=== PATIENT | female | born 1935 | race Caucasian/White ===

== ENCOUNTER 2022-05-17 16:39 | Inpatient (IN) ==
[2022-05-17 17:29] LABS: ABS Basophils 0.1 10^3/ul (0-0.2); ABS Lymphocytes 0.6 10^3/ul (1.0-4.8); ABS Monocytes 0.6 10^3/ul (0-0.8); ABS Neutrophils 10.3 10^3/ul (1.5-7.7); Hematocrit 48 % (35-47); Hemoglobin 15.6 g/dL (12.0-16.0); Lymphocyte % 5.4 %; Mean Corpuscular HGB Conc 32 g/dL (31-36); Mean Corpuscular Hemoglobin 31 pg (27-31); Mean Corpuscular Volume 95 fL (80-97); Mean Platelet Volume 9.6 fL (7.4-10.4); Nucleated Red Blood Cells % 0.1; Platelet Count 253 10^3/uL (150-450); Red Blood Count 5.07 10^6 /uL (3.70-4.87); Red Cell Distribution Width 13 % (10-15); White Blood Count 11.6 10^3/uL (3.5-10.8)
[2022-05-17 17:44] LABS: Calcium 11.8 mg/dL (8.6-10.3); Potassium 4.9 mmol/L (3.5-5.0); eGFR CKD-EPI 25.9 (>60)
[2022-05-17] MEDS ORDERED: Acetaminophen IV 1 GM/100ML 100 ML IV ONE (17:45)
[2022-05-17] MEDS ORDERED: Morphine 4 MG/ML VIAL (1 ml) IV ONE (18:32)
[2022-05-17] MEDS ORDERED: Lactated Ringers 1000 ml BAG 1,000 ML IV ONE (18:32)
[2022-05-17 19:00] LABS: High Sensitivity Troponin 1 Hr 182 pg/mL (<15)
[2022-05-17 20:36] LABS: C Reactive Protein 5.27 mg/L (<8.01); Magnesium 2.6 mg/dL (1.9-2.7)
[2022-05-18] MEDS: Enoxaparin 30 MG/0.3 ML SYR SUBCUT SCH ×2 (02:22→22:18)
[2022-05-18 04:58] LABS: Urine Appearance Cloudy; Urine Bilirubin Negative (Negative); Urine Blood Negative (Negative); Urine Color Yellow; Urine Glucose 2+ (500mg/dL) (Negative); Urine Ketones 2+ (40mg/dL) (Negative); Urine Nitrite Negative (Negative); Urine Protein Negative (Negative); Urine Urobilinogen 0.2 (Negative) (Negative); Urine pH 5.5 (5.0-9.0)
[2022-05-18 05:05] LABS: Urine Bacteria 3+ (Absent); Urine Red Blood Cell 1+(3-5/hpf) (Absent); Urine Squamous Epithelial Cell Present (Absent); Urine White Blood Cell 2+(11-20/hpf) (Absent)
[2022-05-18 05:52] LABS: ABS Basophils 0.1 10^3/ul (0-0.2); ABS Lymphocytes 0.9 10^3/ul (1.0-4.8); Eosinophil % 0.2 %; Hematocrit 42 % (35-47); Hemoglobin 14.6 g/dL (12.0-16.0); Lymphocyte % 8.1 %; Mean Corpuscular HGB Conc 35 g/dL (31-36); Mean Corpuscular Hemoglobin 33 pg (27-31); Mean Corpuscular Volume 95 fL (80-97); Mean Platelet Volume 9.4 fL (7.4-10.4); Platelet Count 222 10^3/uL (150-450); Red Blood Count 4.42 10^6 /uL (3.70-4.87); Red Cell Distribution Width 14 % (10-15)
[2022-05-18 05:58] LABS: INR 0.99 (0.89-1.11)
[2022-05-18] MEDS ORDERED: cefTRIAXone 1 gm/50 mL D5W 1 GM/50 ML BAG IV ONE (06:30)
[2022-05-18 06:41] LABS: Calcium 10.9 mg/dL (8.6-10.3); HDL Cholesterol 32.2 mg/dL; Potassium 5.1 mmol/L (3.5-5.0); eGFR CKD-EPI 25.9 (>60)
[2022-05-18 08:29] LABS: Calcium (PTH Intact) 10.9 mg/dL (8.6-10.3)
[2022-05-18 08:33] LABS: Vitamin D Total 25(OH) 14.6 ng/mL (20-50)
[2022-05-18] MEDS ORDERED: Lidocaine PATCH 5% PATCH TRANSDERM ONE (11:33)
[2022-05-18] MEDS ORDERED: CMCS: Alendronate 70 mg TAB (NF) PO SCH (16:00)
[2022-05-18] MEDS: Cholecalciferol (VIT D3) 1,000 unit TAB PO SCH (18:36)
[2022-05-18] MEDS: Lactated Ringers 1000 ml BAG 1,000 ML IV SCH (18:36)
[2022-05-18] MEDS: Insulin GLARGINE 100 un/ml 10 ml VIAL SUBCUT SCH (22:17)
[2022-05-19] MEDS: Lactated Ringers 1000 ml BAG 1,000 ML IV SCH ×2 (04:54→15:28)
[2022-05-19] MEDS ORDERED: cefTRIAXone 1 gm/50 mL D5W 1 GM/50 ML BAG IV SCH (06:30)
[2022-05-19] MEDS: CMCS: Alendronate 70 mg TAB (NF) PO SCH (07:03)
[2022-05-19 08:46] LABS: Calcium 10.7 mg/dL (8.6-10.3); Potassium 4.2 mmol/L (3.5-5.0); eGFR CKD-EPI 41.1 (>60)
[2022-05-19] MEDS: Cholecalciferol (VIT D3) 1,000 unit TAB PO SCH (09:42)
[2022-05-19] MEDS ORDERED: Insulin GLARGINE 100 un/ml 10 ml VIAL SUBCUT ONE (21:58)
[2022-05-19] MEDS: Enoxaparin 30 MG/0.3 ML SYR SUBCUT SCH (22:44)
[2022-05-19] MEDS: Insulin GLARGINE 100 un/ml 10 ml VIAL SUBCUT SCH (23:52)
[2022-05-20] MEDS: Cholecalciferol (VIT D3) 1,000 unit TAB PO SCH (09:31)
[2022-05-20] MEDS: Enoxaparin 30 MG/0.3 ML SYR SUBCUT SCH (20:49)
[2022-05-20] MEDS ORDERED: Insulin GLARGINE 100 un/ml 10 ml VIAL SUBCUT SCH ×2 (21:00)
[2022-05-21 06:06] LABS: ABS Lymphocytes 0.8 10^3/ul (1.0-4.8); ABS Monocytes 0.9 10^3/ul (0-0.8); ABS Neutrophils 9.6 10^3/ul (1.5-7.7); Eosinophil % 0.2 %; Hematocrit 40 % (35-47); Hemoglobin 13.5 g/dL (12.0-16.0); Lymphocyte % 7.1 %; Mean Corpuscular HGB Conc 34 g/dL (31-36); Mean Corpuscular Hemoglobin 32 pg (27-31); Mean Corpuscular Volume 96 fL (80-97); Mean Platelet Volume 9.9 fL (7.4-10.4); Platelet Count 186 10^3/uL (150-450); Red Blood Count 4.18 10^6 /uL (3.70-4.87); Red Cell Distribution Width 14 % (10-15); White Blood Count 11.4 10^3/uL (3.5-10.8)
[2022-05-21 06:46] LABS: Calcium 9.3 mg/dL (8.6-10.3); Magnesium 1.9 mg/dL (1.9-2.7); Potassium 3.9 mmol/L (3.5-5.0); eGFR CKD-EPI 42.6 (>60)
[2022-05-21] MEDS: Cholecalciferol (VIT D3) 1,000 unit TAB PO SCH (08:35)
[2022-05-21 15:36] LABS: Urine Color Straw
[2022-05-21 15:37] LABS: Urine Appearance Clear; Urine Bilirubin Negative (Negative); Urine Blood Negative (Negative); Urine Glucose 3+ (>=1000 mg/dL) (Negative); Urine Ketones Negative (Negative); Urine Nitrite Negative (Negative); Urine Protein Negative (Negative); Urine Specific Gravity <1.005 (1.005-1.030); Urine Urobilinogen 0.2 (Negative) (Negative); Urine pH 5.5 (5.0-9.0)
[2022-05-21] MEDS: Enoxaparin 30 MG/0.3 ML SYR SUBCUT SCH (21:35)
[2022-05-21] MEDS: Insulin GLARGINE 100 un/ml 10 ml VIAL SUBCUT SCH (21:36)
[2022-05-22] MEDS ORDERED: Polyethylene Glycol 3350 17 GM PACKET PO PRN (02:39)
[2022-05-22] MEDS: Senna TAB 8.6 mg TAB PO SCH ×3 (06:00→21:27)
[2022-05-22] MEDS: Cholecalciferol (VIT D3) 1,000 unit TAB PO SCH (09:51)
[2022-05-22] MEDS ORDERED: Morphine 2 MG/ML SYRINGE IV ONE (11:54)
[2022-05-22] MEDS ORDERED: Heparin 5000 UNITS/ML 1 mL VIAL SUBCUT ONE (21:00)
[2022-05-22] MEDS: Insulin GLARGINE 100 un/ml 10 ml VIAL SUBCUT SCH (21:29)
[2022-05-23 06:43] LABS: ABS Lymphocytes 0.4 10^3/ul (1.0-4.8); ABS Monocytes 0.5 10^3/ul (0-0.8); ABS Neutrophils 8.5 10^3/ul (1.5-7.7); Hematocrit 42 % (35-47); Hemoglobin 14.5 g/dL (12.0-16.0); Lymphocyte % 4.6 %; Mean Corpuscular HGB Conc 35 g/dL (31-36); Mean Corpuscular Hemoglobin 33 pg (27-31); Mean Corpuscular Volume 95 fL (80-97); Mean Platelet Volume 9.2 fL (7.4-10.4); Platelet Count 237 10^3/uL (150-450); Red Blood Count 4.41 10^6 /uL (3.70-4.87); Red Cell Distribution Width 14 % (10-15); White Blood Count 9.5 10^3/uL (3.5-10.8)
[2022-05-23] MEDS ORDERED: NS 0.9% 1000 ml BAG 1,000 ML IV SCH (07:00)
[2022-05-23 07:33] LABS: Calcium 8.8 mg/dL (8.6-10.3); eGFR CKD-EPI 29.8 (>60)
[2022-05-23] MEDS: Cholecalciferol (VIT D3) 1,000 unit TAB PO SCH (08:48)
[2022-05-23] MEDS: Enoxaparin 30 MG/0.3 ML SYR SUBCUT SCH (19:07)
[2022-05-23] MEDS: Insulin GLARGINE 100 un/ml 10 ml VIAL SUBCUT SCH (20:44)
[2022-05-24 06:40] LABS: Calcium 8.6 mg/dL (8.6-10.3); Potassium 3.5 mmol/L (3.5-5.0); eGFR CKD-EPI 35.9 (>60)
[2022-05-24] MEDS ORDERED: Potassium Chloride LIQUID 20 MEQ/15 ML LIQUID PO ONE (07:23)
[2022-05-24] MEDS: Cholecalciferol (VIT D3) 1,000 unit TAB PO SCH (09:02)
[2022-05-24] MEDS: NS 0.9% 1000 ml BAG 1,000 ML IV SCH ×2 (10:23→23:38)
[2022-05-24 15:12] LABS: ABS Lymphocytes 0.7 10^3/ul (1.0-4.8); ABS Monocytes 0.8 10^3/ul (0-0.8); ABS Neutrophils 6.5 10^3/ul (1.5-7.7); Eosinophil % 0.3 %; Hematocrit 40 % (35-47); Hemoglobin 13.1 g/dL (12.0-16.0); Lymphocyte % 8.5 %; Mean Corpuscular HGB Conc 33 g/dL (31-36); Mean Corpuscular Hemoglobin 31 pg (27-31); Mean Corpuscular Volume 94 fL (80-97); Mean Platelet Volume 9.5 fL (7.4-10.4); Platelet Count 228 10^3/uL (150-450); Red Blood Count 4.19 10^6 /uL (3.70-4.87); Red Cell Distribution Width 14 % (10-15)
[2022-05-24 15:34] LABS: Rapid COVID-19 Molecular Undetected (Undetected)
[2022-05-24 15:35] LABS: Calcium 8.1 mg/dL (8.6-10.3); Potassium 3.9 mmol/L (3.5-5.0); eGFR CKD-EPI 40.3 (>60)
[2022-05-24] MEDS: Dextrose 50% Syringe 50 ml 25 GM/50 ML SYRINGE IV PUSH PRN (17:54)
[2022-05-24] MEDS: Enoxaparin 30 MG/0.3 ML SYR SUBCUT SCH (18:01)
[2022-05-24] MEDS ORDERED: Insulin GLARGINE 100 un/ml 10 ml VIAL SUBCUT SCH (21:00)
[2022-05-25] MEDS ORDERED: Polyethylene Glycol 3350 17 GM PACKET PO PRN (01:10)
[2022-05-25] MEDS ORDERED: Senna TAB 8.6 mg TAB PO ONE (01:10)
[2022-05-25 05:57] LABS: ABS Lymphocytes 0.6 10^3/ul (1.0-4.8); ABS Monocytes 0.9 10^3/ul (0-0.8); ABS Neutrophils 7.2 10^3/ul (1.5-7.7); Eosinophil % 0.2 %; Hematocrit 39 % (35-47); Hemoglobin 12.8 g/dL (12.0-16.0); Lymphocyte % 6.6 %; Mean Corpuscular HGB Conc 33 g/dL (31-36); Mean Corpuscular Hemoglobin 31 pg (27-31); Mean Corpuscular Volume 94 fL (80-97); Mean Platelet Volume 9.1 fL (7.4-10.4); Platelet Count 215 10^3/uL (150-450); Red Cell Distribution Width 13 % (10-15); White Blood Count 8.8 10^3/uL (3.5-10.8)
[2022-05-25 06:16] LABS: Calcium 7.6 mg/dL (8.6-10.3); Potassium 3.4 mmol/L (3.5-5.0); eGFR CKD-EPI 58.7 (>60)
[2022-05-25] MEDS ORDERED: Potassium Chlor 20 meq TAB.ER PO ONE ×2 (08:24→12:00)
[2022-05-25] MEDS: Cholecalciferol (VIT D3) 1,000 unit TAB PO SCH (08:32)
[2022-05-25] MEDS: NS 0.9% 1000 ml BAG 1,000 ML IV SCH (13:18)
[2022-05-25] MEDS: Insulin GLARGINE 100 un/ml 10 ml VIAL SUBCUT SCH (21:04)
[2022-05-25] MEDS ORDERED: NS 0.9% 1000 ml BAG 1,000 ML IV SCH (23:55)
[2022-05-26] MEDS: NS 0.9% 1000 ml BAG 1,000 ML IV SCH (03:14)
[2022-05-26] MEDS: CMCS: Alendronate 70 mg TAB (NF) PO SCH (05:59)
[2022-05-26] MEDS: Dextrose 50% Syringe 50 ml 25 GM/50 ML SYRINGE IV PUSH PRN (07:35)
[2022-05-26] MEDS ORDERED: ceFAZolin VIAL 1 GM in NS *SYRINGE* 10 ML IVPB ONE (08:00)
[2022-05-26] MEDS ORDERED: ceFAZolin 2 GM in NS PREMIX 2 GM/100 ML BAG IVPB ONE (08:00)
[2022-05-26] MEDS ORDERED: ceFAZolin VIAL 1 GM in NS 0.9% 50 ML 50 ML IVPB ONE (08:00)
[2022-05-26] MEDS: Cholecalciferol (VIT D3) 1,000 unit TAB PO SCH (08:34)
[2022-05-26 09:06] LABS: Calcium 7.3 mg/dL (8.6-10.3); Magnesium 1.5 mg/dL (1.9-2.7); Potassium 3.8 mmol/L (3.5-5.0); eGFR CKD-EPI 66.2 (>60)
[2022-05-26] MEDS ORDERED: Magnesium Sulf 4 GM/100 ML IV 4,000 MG/100 ML BAG IVPB ONE (09:36)
[2022-05-26] MEDS ORDERED: Midazolam 5 mg/5 ml VIAL 1 mg/ml 5 ml VIAL (5 mg) ONE (10:17)
[2022-05-26] MEDS ORDERED: Lidocaine 1% VIAL 10 MG/ML VIAL ONE (10:17)
[2022-05-26] MEDS ORDERED: fentaNYL 100 mcg/2 ml 50 MCG/ML VIAL ONE (10:17)
[2022-05-26] MEDS: ceFAZolin VIAL 1 GM in NS 0.9% 50 ML 50 ML IVPB SCH (17:29)
[2022-05-26] MEDS: Insulin GLARGINE 100 un/ml 10 ml VIAL SUBCUT SCH (21:03)
[2022-05-27] MEDS: ceFAZolin VIAL 1 GM in NS 0.9% 50 ML 50 ML IVPB SCH ×2 (01:22→10:40)
[2022-05-27] MEDS: Cholecalciferol (VIT D3) 1,000 unit TAB PO SCH (07:40)
[2022-05-27 10:32] LABS: Rapid COVID-19 Molecular Undetected (Undetected)
[2022-05-27 10:43] LABS: Calcium 7.2 mg/dL (8.6-10.3); Magnesium 1.9 mg/dL (1.9-2.7); Potassium 3.9 mmol/L (3.5-5.0); eGFR CKD-EPI 66.2 (>60)
[2022-05-27 11:23] VITALS: BP 125/89
[2022-05-27] MEDS ORDERED: Insulin GLARGINE 100 un/ml 10 ml VIAL SUBCUT SCH (21:00)
== END 2022-05-27 13:15 | DRG 243 ==
LOC: ED 16:39 → EDHOLD 16:39 → SUATTDRO 22:26 → MEDTELE 05-18 17:23 → SUATTDRO 05-19 16:42
PROVIDERS: ADMIT Internal Medicine; ATTEND Internal Medicine

== ENCOUNTER 2022-09-24 08:27 | Inpatient (IN) ==
[2022-09-24 09:30] LABS: ABS Basophils 0.1 10^3/ul (0-0.2); ABS Lymphocytes 0.5 10^3/ul (1.0-4.8); ABS Monocytes 0.7 10^3/ul (0-0.8); ABS Neutrophils 9.1 10^3/ul (1.5-7.7); Hematocrit 38 % (35-47); Hemoglobin 12.3 g/dL (12.0-16.0); Lymphocyte % 4.7 %; Mean Corpuscular HGB Conc 32 g/dL (31-36); Mean Corpuscular Hemoglobin 30 pg (27-31); Mean Corpuscular Volume 93 fL (80-97); Mean Platelet Volume 8.6 fL (7.4-10.4); Platelet Count 219 10^3/uL (150-450); Red Blood Count 4.08 10^6 /uL (3.70-4.87); Red Cell Distribution Width 14 % (10-15); White Blood Count 10.3 10^3/uL (3.5-10.8)
[2022-09-24 10:11] LABS: Albumin/Globulin Ratio 1.7 (1-3); C Reactive Protein 7.08 mg/L (<8.01); Calcium 9.1 mg/dL (8.6-10.3); Globulin 2.3 g/dL (2-4); Potassium 4.1 mmol/L (3.5-5.0); Total Bilirubin 1.4 mg/dL (0.2-1.0); Total Protein 6.3 g/dL (6.4-8.9); eGFR CKD-EPI 64.8 (>60)
[2022-09-24 10:53] LABS: High Sensitivity Troponin 1 Hr 214 pg/mL (<15)
[2022-09-24] MEDS ORDERED: Furosemide 40 mg/4 ml IV VIAL IV ONE (14:29)
[2022-09-24] MEDS ORDERED: cefTRIAXone 1 gm/50 mL D5W 1 GM/50 ML BAG IV SCH (14:45)
[2022-09-24] MEDS ORDERED: Remdesivir 100 mg Vial 200 MG in NS 0.9% 250 ml 210 ML IV ONE (14:45)
[2022-09-24] MEDS ORDERED: Magnesium Hydroxide LIQ 30 ML UDC PO PRN (14:51)
[2022-09-24] MEDS ORDERED: guaiFENesin 100 mg/5 ml LIQ unit dose cup PO PRN (14:51)
[2022-09-24] MEDS ORDERED: Azithromycin 500 mg/250 ml NS 500 MG/250 ML BAG IVPB SCH (15:00)
[2022-09-24] MEDS: Enoxaparin 40 MG/0.4 ML SYR SUBCUT SCH (16:18)
[2022-09-24 19:47] LABS: Urine Appearance Slightly Cloudy; Urine Bilirubin Negative (Negative); Urine Blood 1+ (Small) (Negative); Urine Color Straw; Urine Glucose 2+ (500mg/dL) (Negative); Urine Ketones Negative (Negative); Urine Nitrite Negative (Negative); Urine Protein 1+ (30 mg/dL) (Negative); Urine Specific Gravity 1.025 (1.005-1.030); Urine Urobilinogen 0.2 (Negative) (Negative)
[2022-09-24 20:07] LABS: Urine Bacteria 1+ (Absent); Urine Red Blood Cell 2+(6-10/hpf) (Absent); Urine White Blood Cell 3+(>20/hpf) (Absent)
[2022-09-24] MEDS ORDERED: Insulin GLARGINE 100 un/ml 10 ml VIAL SUBCUT SCH (21:00)
[2022-09-25 08:22] LABS: ABS Basophils 0.1 10^3/ul (0-0.2); ABS Lymphocytes 0.8 10^3/ul (1.0-4.8); ABS Monocytes 0.8 10^3/ul (0-0.8); ABS Neutrophils 5.4 10^3/ul (1.5-7.7); Eosinophil % 0.3 %; Hematocrit 38 % (35-47); Lymphocyte % 11.3 %; Mean Corpuscular HGB Conc 32 g/dL (31-36); Mean Corpuscular Hemoglobin 30 pg (27-31); Mean Corpuscular Volume 94 fL (80-97); Mean Platelet Volume 8.8 fL (7.4-10.4); Platelet Count 218 10^3/uL (150-450); Red Blood Count 4.01 10^6 /uL (3.70-4.87); Red Cell Distribution Width 15 % (10-15)
[2022-09-25] MEDS ORDERED: Furosemide 40 mg/4 ml IV VIAL IV SCH (09:00)
[2022-09-25] MEDS ORDERED: Empagliflozin 25 MG TAB PO SCH (09:00)
[2022-09-25 09:03] LABS: Albumin 3.7 g/dL (3.2-5.2); Albumin/Globulin Ratio 1.8 (1-3); Calcium 8.8 mg/dL (8.6-10.3); Globulin 2.1 g/dL (2-4); Magnesium 1.9 mg/dL (1.9-2.7); Potassium 3.5 mmol/L (3.5-5.0); Total Bilirubin 1.6 mg/dL (0.2-1.0); Total Protein 5.8 g/dL (6.4-8.9); eGFR CKD-EPI 68.6 (>60)
[2022-09-25] MEDS ORDERED: Potassium Chlor 20 meq TAB.ER PO ONE (09:15)
[2022-09-25] MEDS: Furosemide 40 mg/4 ml IV VIAL IV SCH ×2 (10:11→15:00)
[2022-09-25] MEDS: Empagliflozin 25 MG TAB PO SCH (11:02)
[2022-09-25] MEDS ORDERED: cefTRIAXone 1 gm/50 mL D5W 1 GM/50 ML BAG IV SCH (14:00)
[2022-09-25] MEDS ORDERED: Remdesivir 100 mg Vial 100 MG in NS 0.9% 250 ml 230 ML IV SCH (14:15)
[2022-09-25] MEDS: Enoxaparin 40 MG/0.4 ML SYR SUBCUT SCH (15:00)
[2022-09-25] MEDS ORDERED: Azithromycin 500 mg/250 ml NS 500 MG/250 ML BAG IVPB SCH (15:00)
[2022-09-25] MEDS ORDERED: Insulin GLARGINE 100 un/ml 10 ml VIAL SUBCUT SCH (21:00)
[2022-09-26 06:12] LABS: ABS Eosinophils 0.1 10^3/ul (0-0.6); ABS Lymphocytes 0.9 10^3/ul (1.0-4.8); ABS Neutrophils 4.6 10^3/ul (1.5-7.7); Eosinophil % 0.8 %; Hematocrit 36 % (35-47); Hemoglobin 11.7 g/dL (12.0-16.0); Lymphocyte % 13.4 %; Mean Corpuscular HGB Conc 33 g/dL (31-36); Mean Corpuscular Hemoglobin 30 pg (27-31); Mean Corpuscular Volume 93 fL (80-97); Mean Platelet Volume 8.9 fL (7.4-10.4); Platelet Count 206 10^3/uL (150-450); Red Blood Count 3.87 10^6 /uL (3.70-4.87); Red Cell Distribution Width 14 % (10-15); White Blood Count 6.5 10^3/uL (3.5-10.8)
[2022-09-26 06:29] LABS: Albumin 3.4 g/dL (3.2-5.2); Albumin/Globulin Ratio 1.5 (1-3); Calcium 8.7 mg/dL (8.6-10.3); Globulin 2.2 g/dL (2-4); Magnesium 1.8 mg/dL (1.9-2.7); Potassium 3.6 mmol/L (3.5-5.0); Total Bilirubin 1.2 mg/dL (0.2-1.0); Total Protein 5.6 g/dL (6.4-8.9)
[2022-09-26] MEDS ORDERED: Potassium Chlor 20 meq TAB.ER PO ONE (07:30)
[2022-09-26] MEDS ORDERED: Magnesium Sulfate IV 1GM/100ML 1 GM/100 ML BAG IV ONE (07:31)
[2022-09-26] MEDS ORDERED: cefTRIAXone 1 gm/50 mL D5W 1 GM/50 ML BAG IV ONE (09:04)
[2022-09-26] MEDS ORDERED: Azithromycin 500 mg/250 ml NS 500 MG/250 ML BAG IVPB ONE (09:04)
[2022-09-26] MEDS: Empagliflozin 25 MG TAB PO SCH (09:24)
[2022-09-26] MEDS: Furosemide 40 mg/4 ml IV VIAL IV SCH (09:25)
[2022-09-26 11:11] VITALS: BP 144/63
== END 2022-09-26 14:45 | DRG 189 ==
LOC: EDHOLD 08:27 → ED 08:27 → MEDTELE 09-25 01:54
PROVIDERS: ADMIT Internal Medicine; ATTEND Internal Medicine